=== PATIENT | female | born 1970 | race Caucasian/White ===

== ENCOUNTER 2017-09-29 05:26 | Emergency (ER) | payer MEDICAID ==
[2014-05-21 14:11] VITALS: BMI 27.4
[~2017-09-29 05:26] MED LIST: DORYX150 MG PO; HYDROCODONE-APA1 TAB PO; XANAX1 MG PO
== END 2017-09-29 07:10 | disposition home or self-care (01) ==
LOC: D.ER 05:26
DX: J20.9 Acute bronchitis, unspecified (principal); F17.200 Nicotine dependence, unspecified, uncomplicated

== ENCOUNTER 2019-04-08 02:50 | Emergency (ER) | payer MEDICAID ==
[~2019-04-08] VITALS: Ht 167.6 cm; Wt 81.8 kg
[2019-04-08 02:54] VITALS: Ht 167.6 cm; Wt 81.8 kg
[2019-04-08 03:31] VITALS: BP 153/93
== END 2019-04-08 03:31 | disposition home or self-care (01) ==
LOC: D.ER 02:50
DX: G43.109 Migraine with aura, not intractable, without status migrainosus (principal)